=== PATIENT | male | born 1985 | race Caucasian/White ===

== ENCOUNTER 2016-07-29 11:16 | Emergency (ER) | payer BC ==
[~2016-07-29] VITALS: Ht 182.9 cm; Wt 72.7 kg
[~2016-07-29 11:16] MED LIST: BACTRIM,SEPT1 TABLET PO; KEFLEX500 MG PO
[2016-07-29 12:10] LABS: EOSINOPHIL (%) 0.3 % (0-5); HEMATOCRIT 42.3 % (38.0-50.0); LYMPHOCYTE COUNT 0.2 K/uL (1.0-2.8); MCHC 35.5 G/DL (30.0-36.0); MCV 84.6 FL (86-99); MEAN PLAT.VOLUME 11.8 uM^3 (9.0-12.4); MONOCYTE (%) 4.4 % (3-12); MONOCYTE COUNT 0.3 K/uL (0-0.8); NEUTROPHIL (%) 92.5 % (45-76); NEUTROPHIL COUNT 7.1 K/uL (1.8-6.4); PLATELET COUNT 138 K/uL (156-360); RBC DIS.WIDTH-SD 35.7 % (39-53); WHITE BLOOD COUNT 7.7 K/uL (4.1-10.2)
[2016-07-29 12:26] LABS: CHLORIDE 108 mEq/L (99-109); POTASSIUM 3.9 mEq/L (3.7-5.4); SODIUM 141 mEq/L (136-147)
[2016-07-29 12:28] LABS: GLUCOSE 105 mg/dL (70-99)
[2016-07-29 12:30] LABS: ANION GAP 9 MEQ/L (2-14); TOTAL BILIRUBIN 2.3 mg/dL (0.0-1.0)
[2016-07-29 12:32] LABS: ALKALINE PHOSPHATASE 68 IU/L (3-129); GFR ESTIMATE (CALCULATED) > 59 mL/min/
[2016-07-29 12:33] LABS: UREA NITROGEN (BUN) 11 mg/dL (9-23)
[2016-07-29 12:35] LABS: TROP-I INTERPRETATION NEGATIVE; TROPONIN-I < 0.01 ng/mL (0.0-0.30)
[2016-07-29] MEDS ORDERED: ZOFRAN ODT4 MG PO (14:02)
[2016-07-29 14:03] VITALS: BP 110/61
== END 2016-07-29 12:28 | disposition home or self-care (01) ==
LOC: EME 11:16
PROVIDERS: Emergency Medicine
DX: K52.9 Noninfective gastroenteritis and colitis, unspecified (principal); R07.9 Chest pain, unspecified; F17.200 Nicotine dependence, unspecified, uncomplicated
CPT/HCPCS: 71010; 80053; 84484; 85025; 93005; 99281; 99284; J1885; J7030